=== PATIENT | male | born 1950 | race Caucasian/White ===

== ENCOUNTER 2016-09-16 19:22 | Emergency (ER) | payer MEDICARE ==
[~2016-09-16] VITALS: Ht 180.3 cm; Wt 64.2 kg
[2016-09-16] MEDS ORDERED: MORPHINE SULFATE 4 MG/ML, 1ML ONE (19:52)
[2016-09-16] MEDS ORDERED: ONDANSETRON 2MG/ML, 2ML ONE (19:52)
[2016-09-16] MEDS ORDERED: ALBUTEROL/IPRATROPIUM 2.5MG/0.5MG, 3 ML NPPB ONE (20:00)
[2016-09-16] MEDS ORDERED: SODIUM CHLORIDE FLUSH 10ML SYR IVF ONE (20:00)
[2016-09-16] MEDS ORDERED: ONDANSETRON 2MG/ML, 2ML IVPush ONE (20:00)
[2016-09-16] MEDS ORDERED: SODIUM CHLORIDE 0.9% 1,000ML IVBOLUS ONE (20:00)
[2016-09-16] MEDS ORDERED: MORPHINE SULFATE 4 MG/ML, 1ML IVPush PRN (20:00)
[2016-09-16] MEDS ORDERED: HTN (20:04)
[2016-09-16] MEDS ORDERED: ALBUTEROL/IPRATROPIUM 2.5MG/0.5MG, 3 ML ONE (20:04)
[2016-09-16 20:05] LABS: BLOOD UREA NITROGEN 19 mg/dL (7-18)
[2016-09-16] MEDS ORDERED: BLOOD THINNER (20:05)
[2016-09-16 21:12] VITALS: BP 134/76
== END 2016-09-16 21:51 | disposition home or self-care (01) ==
LOC: ED 20:47
DX: J44.1 Chronic obstructive pulmonary disease with (acute) exacerbation (principal); I10 Essential (primary) hypertension
CPT/HCPCS: 36415; 71020; 80048; 82040; 85025; 93005; 94640; 96374; 96375; 99285; J2405; J7030; J7512; J7620